=== PATIENT | male | born 1955 | race Caucasian/White ===

== ENCOUNTER 2019-08-22 01:38 | Day surgery (SDC) | payer OTHER, SELFPAY ==
[2019-08-19 09:10] VITALS: BMI 25.1
[2019-08-22 06:46] VITALS: BP 124/73; PULSE 105; RESP 20; TEMP 36.3; O2SAT 95; BMI 24.0
[2019-08-22] MEDS: LACTATED RINGERS 1,000 ML 150 ML IV CONT (06:50)
--- NOTE | 2019-08-22 07:23 | WPDANESEPPF ---
Anes - Initial Pre Proc Eval Procedure: Operation Date: 08/22/19 07:30 Proposed Procedures p Colonoscopy - Hemal Monge DO Date/Time: 08/22/19 07:23 Surgeon: Hemal Monge DO Pre Op Diagnosis: Colitis Patient Data Age: 64 Gender: M Height: 5 ft 7 in Weight: 69.5 kg Last Vital Signs Temp 97.4 F L 08/22/19 06:46 Pulse 105 H 08/22/19 06:46 Resp 20 08/22/19 06:46 BP 124/73 08/22/19 06:46 Pulse Ox 95 08/22/19 06:46 Allergies Allergy/AdvReac Type Severity Reaction Status Date / Time No Known Allergies Allergy Verified 08/22/19 06:34 Home Medications Medication Instructions Recorded Confirmed Type amlodipine 10 mg PO DAILY 08/19/19 08/22/19 History atorvastatin 10 mg PO DAILY 08/19/19 08/22/19 History mesalamine 1.2 g PO DAILY 08/19/19 08/19/19 History Patient hx anesthesia problems: none Family hx anesthesia problems: none [facility] Past Medical History Medical History (Updated 08/22/19 @ 07:23 by Rob Alberto MD) Hyperlipidemia Hypertension Social History Social History Smoking status: Heavy tobacco smoker Second hand tobacco smoke exposure: No Alcohol intake: current Anes - Eval Final PreProcedure Day of Procedure 08/22/19 07:23 Patient weight: normal Heart: regular rate and rhythm Lungs: clear to auscultation Airway: Mallampati scale class II Neurological: alert and oriented Last oral intake: >/= 8 hours ASA classification: II Emergent: no Anesthetic plan: proceed Anesthesia type and monitoring: general GIVS and standard monitoring Informed Consent: The patient's anesthetic plan and its attendant risks and benefits were discussed with the patient/family/POA. Questions were solicited and answers provided to the satisfaction of the patient/family/POA.
--- NOTE | 2019-08-22 07:54 | PM.IMHP ---
H&P: HPI History of Present Illness Chief complaint: Colitis Narrative: Reason for visit colonoscopy. Impression: This very pleasant gentleman has a history of adenomatous colon polyps. He is here for screening and surveillance colonoscopy. 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 He is here for follow-up colonoscopy to assess for any type of inflammatory disease. For past medical history. Recommendation: Colonoscopy. History very pleasant gentleman is a history is screening and surveillance colonoscopy. He has a history adenomatous colon polyps. Previous biopsies did show some nonspecific inflammation with crypt abscesses. His GI review systems negative at this time. He is here for follow-up colonoscopy. Patient does have a history of shortness of breath and dyspnea exertion and wheezing. General: very pleasant patient in no acute distress. HEENT: Head was normocephalic sclerae is clear mouth without masses neck was supple. Heart: Rate rhythm regular without S3 or S4. Lungs: CTA. Abdomen: Soft with no guarding or rigidity. Bowel sounds were active. Neurologic: Cranial nerves 2 through 12 intact. No focal defects. No clonus. Musculoskeletal system: Revealed no joint tenderness or swelling no muscle atrophy. Extremities: Reveal no significant edema. Skin: Warm and dry with normal turgor. Mental status: intact. Patient is alert and oriented. Impression: Screening and surveillance colonoscopy. Patient's is adenomatous colon polyps and nonspecific inflammation. Recommendation: Colonoscopy. [facility] Past Medical History Medical History (Updated 08/22/19 @ 07:54 by Hemal Monge DO) Adenomatous colon polyp COPD (chronic obstructive pulmonary disease) Hyperlipidemia Hypertension Tobacco abuse Surgical History Surgical History (Updated 08/22/19 @ 07:50 by Hemal Monge DO) History of colonoscopy Family History Family History (Updated 08/22/19 @ 07:51 by Hemal Monge DO) Father Malignant neoplasm of prostate Social History Social History Smoking status: Heavy tobacco smoker Second hand tobacco smoke exposure: No Alcohol intake: current Meds Home Medications and Allergies Home Medications Medication Instructions Recorded Confirmed Type amlodipine 10 mg PO DAILY 08/19/19 08/22/19 History atorvastatin 10 mg PO DAILY 08/19/19 08/22/19 History mesalamine 1.2 g PO DAILY 08/19/19 08/19/19 History Allergies Allergy/AdvReac Type Severity Reaction Status Date / Time No Known Allergies Allergy Verified 08/22/19 06:34 Vital Signs Vital Signs - 24 hr 08/22/19 06:46 Temperature 36.3 C L Pulse Rate 105 H Respiratory Rate 20 Blood Pressure 124/73 Pulse Oximetry 95
[2019-08-22 08:42] VITALS: BP 115/78; PULSE 72; RESP 20; O2SAT 97
[2019-08-22 08:52] VITALS: BP 139/96; PULSE 68; RESP 18; O2SAT 100
[2019-08-22 09:02] VITALS: BP 146/87; PULSE 75; RESP 20; O2SAT 98
== END 2019-08-22 09:48 | disposition home or self-care (01) ==
PROVIDERS: PCP Family Medicine; Visit Provider Internal Medicine Gastroenterology
PROC: 0DJD8ZZ Inspection of Lower Intestinal Tract, Via Natural or Artificial Opening Endoscopic (ICD-10-PCS; CPT 45378; principal; 2019-08-22 07:30)
DX: Z12.11 Encounter for screening for malignant neoplasm of colon (principal); K52.9 Noninfective gastroenteritis and colitis, unspecified; D12.3 Benign neoplasm of transverse colon; D12.2 Benign neoplasm of ascending colon; D12.4 Benign neoplasm of descending colon; K64.8 Other hemorrhoids; K57.30 Diverticulosis of large intestine without perforation or abscess without bleeding; I10 Essential (primary) hypertension; E78.5 Hyperlipidemia, unspecified; J44.9 Chronic obstructive pulmonary disease, unspecified; F17.210 Nicotine dependence, cigarettes, uncomplicated
CPT/HCPCS: 45385; 45380; 88305; J2704; J7120

== ENCOUNTER 2022-07-19 10:20 | Outpatient (CLI) | payer MEDICARE, OTHER, SELFPAY ==
[2022-07-19 15:33] LABS: Basophils Absolute Auto 0.1 K/mm3 (0.0-0.1); Basophils Percent Auto 1.1 % (0.2-1.2); Eosinophils Absolute Auto 0.3 K/mm3 (0-0.3); Eosinophils Percent Auto 3.5 % (0-4.4); Hematocrit 43.9 % (42.0-52.0); Hemoglobin 15.1 g/dL (14.0-18.0); Immature Granulocyte Absolute 0.04 K/mm3 (0.00-0.031); Immature Granulocyte Percent A 0.5 % (0-0.5); Lymphocytes Absolute Auto 2.38 K/mm3 (0.9-3.2); Lymphocytes Percent Auto 30.1 % (18.3-44.2); Mean Corpuscular HGB Conc 34.4 g/dl (32-36); Mean Corpuscular Hemoglobin 30.4 pg (26-34); Mean Corpuscular Volume 88.5 fl (80-100); Monocytes Absolute Auto 0.8 K/mm3 (0.1-0.6); Monocytes Percent Auto 9.8 % (2.6-8.5); Neutrophils Absolute Auto 4.4 K/mm3 (1.3-6.7); Platelet Count Result 272 k/mm3 (150-375); Red Blood Count 4.96 M/mm3 (4.6-6.20); Red Cell Distribution Width 13.2 % (11.5-14.5); White Blood Count 7.9 K/mm3 (4.5-10.0)
[2022-07-19 16:24] LABS: Hemoglobin A1C 5.9 % (<5.7)
[2022-07-19 19:50] LABS: Alanine Aminotransferase 34 U/L (6-50); Albumin Level 4.6 g/dL (3.5-5.1); Alkaline Phosphatase 97 U/L (38-126); Anion Gap 7 mmol/L (8-16); Aspartate Amino Transferase 30 U/L (17-59); Bilirubin,Total 0.6 mg/dL (0.2-1.3); Blood Urea Nitrogen 12 mg/dL (9-20); Calcium 8.9 mg/dL (8.4-10.2); Carbon Dioxide 25 mmol/L (22-30); Chloride 105 mmol/L (98-107); Cholesterol 191 mg/dL (0-200); Estimated Glomerular Filt Rate > 60; Glucose 103 mg/dL (65-110); HDL Direct 54 mg/dL; Sodium 137 mmol/L (137-145); Triglycerides 146 mg/dL (<150)
[2022-07-19 20:01] LABS: LDL Cholesterol Direct 94 mg/dL
[2022-07-19 20:02] LABS: Vitamin D 25 Hydroxy 71.9 ng/mL
[2022-07-19 20:21] LABS: Prostate Specific Antigen 1.5 ng/mL (< OR = 4.0)
== END 2022-07-19 10:21 | disposition home or self-care (01) ==
LOC: ANHGOSHLAB 10:23
PROVIDERS: PCP Family Medicine; Visit Provider Family Medicine
DX: I10 Essential (primary) hypertension (principal); E53.8 Deficiency of other specified B group vitamins; E55.9 Vitamin D deficiency, unspecified; E78.5 Hyperlipidemia, unspecified; Z12.5 Encounter for screening for malignant neoplasm of prostate; R73.03 Prediabetes
CPT/HCPCS: 36415; 80053; 80061; 82306; 82607; 83036; 84153; 84443; 85025; G0103

== ENCOUNTER 2022-09-28 00:52 | Day surgery (SDC) | payer MEDICARE, OTHER, SELFPAY ==
[2022-09-19 13:44] VITALS: BMI 25.9
--- NOTE | 2022-09-27 12:12 | WPDANESEPPF ---
Anes - Initial Pre Proc Eval Procedure: Operation Date: 09/28/22 09:30 Proposed Procedures p Colonoscopy - Bhavesh Choudhary MD Date/Time: 09/27/22 12:12 Surgeon: Bhavesh Choudhary MD Pre Op Diagnosis: hx colon polyps Patient Data Age: 67 Gender: M Height: 1.7 m Weight: 75 kg Allergies Allergy/AdvReac Type Severity Reaction Status Date / Time No Known Allergies Allergy Verified 09/28/22 08:34 Home Medications Medication Instructions Recorded Confirmed Type Bacillus coagulans 10 billion cell 1 cell PO DAILY 07/16/21 09/28/22 History capsule,delayed release (Probiotic (B. coagulans)) calcium polycarbophil 625 mg 2,500 mg PO BID 07/16/21 09/28/22 History tablet (FiberCon) cholecalciferol (vitamin D3) 50 50 mcg PO DAILY 07/16/21 09/28/22 History mcg (2,000 unit) capsule zinc gluconate 50 mg tablet 50 mg PO DAILY 07/16/21 09/28/22 History cyanocobalamin (vitamin B-12) 1,000 mcg sublingual DAILY #90 tabs 07/20/22 09/28/22 Rx 1,000 mcg sublingual tablet amlodipine 10 mg tablet 10 mg PO DAILY #90 tabs 08/10/22 09/28/22 Rx atorvastatin 10 mg tablet 10 mg PO QHS #90 tabs 08/12/22 09/28/22 Rx Patient hx anesthesia problems: none Family hx anesthesia problems: none Results Review: All pre-operative results and documents have been reviewed as part of the pre-operative evaluation. [facility] Past Medical History Medical History Adenomatous colon polyp COPD (chronic obstructive pulmonary disease) Dyslipidemia Essential hypertension Tobacco abuse Vitamin D deficiency Surgical History Surgical History History of colonoscopy Family History Family History Father Malignant neoplasm of prostate Social History Social History Smoking packs per day: 1 Smoking cigarettes per day: 20.0 Years smoked: 45 Smoking pack-years: 45.00 Smoking status: Current every day smoker Tobacco type: cigarettes Second hand tobacco smoke exposure: Yes Alcohol intake: current Drinks per week: 12 Alcohol use details: socially Substance use: never Substance use type: does not use Lack of Transportation: No Lack of Food: Never True Current Housing: I Have Housing Concerned About Future Housing: No Difficulty Paying Gas/Electric Bills: No Difficulty Paying for Meds: No Currently Unemployed: No Education: High School Diploma/GED Difficulty w/ Childcare or Family Care: No Living arrangements: with family Gender identity (if verbalized by the patient): Male Sexual Orientation (if Verbalized by the Patient): Straight or Heterosexual Spiritual care concerns: No Anes - Eval Final PreProcedure Day of Procedure 09/27/22 12:12 Patient weight: overweight Heart: regular rate and rhythm Lungs: clear to auscultation Airway: Mallampati scale class II Neurological: alert and oriented Last oral intake: >/= 8 hours ASA classification: III Emergent: no Anesthetic plan: proceed Anesthesia type and monitoring: general GIVS and standard monitoring Results Review: All pre-operative results and documents have been reviewed as part of the pre-operative evaluation. Informed Consent: The patient's anesthetic plan and its attendant risks and benefits were discussed with the patient/family/POA. Questions were solicited and answers provided to the satisfaction of the patient/family/POA.
[2022-09-28 08:36] VITALS: BP 114/71; PULSE 67; RESP 20; TEMP 36.4; O2SAT 97; BMI 25.2
[2022-09-28] MEDS: LACTATED RINGERS 1,000 ML 150 ML IV CONT (08:44)
--- NOTE | 2022-09-28 08:55 | PM.HPGS ---
History of Present Illness History of Present Illness Consent: Risks, benefits, and alternatives have been discussed and questions answered. Patient agrees to proceed with procedure. Chief complaint: hx colon polyps Narrative: Luiz Momin is a 67 year old male with colon polyps in 2019 Review of Systems Constitutional: Constitutional: Denies headache(s) and Denies weakness Eyes: Eyes: Denies blurry vision ENT: Reports Normal hearing present, Denies headache(s) and Denies neck pain Cardiovascular: Cardiovascular: Denies chest pain and Denies dyspnea Respiratory: Respiratory: Denies dyspnea Gastrointestinal: Gastrointestinal: Reports no additional gastrointestinal complaints Genitourinary: Genitourinary: Denies dysuria Musculoskeletal: Musculoskeletal: Denies neck pain Integumentary/Breasts: Skin/Breast: Denies dry skin Neurologic: Reports Normal hearing present, Denies headache(s) and Denies weakness Psychiatric: Psychiatric: Denies anxiety Endocrine: Endocrine: Denies change in body appearance Hematologic/Lymphatic: Hematologic/Lymphatic: Denies easy bleeding Allergic/Immunologic: Allergic/Immunologic: Denies urticaria PMFSH Past Medical History Medical History (Updated 09/28/22 @ 08:58 by Bhavesh Choudhary MD) Adenomatous colon polyp COPD (chronic obstructive pulmonary disease) Dyslipidemia Essential hypertension Tobacco abuse Vitamin D deficiency Surgical History Surgical History History of colonoscopy Family History Family History Father Malignant neoplasm of prostate Social History Social History Smoking packs per day: 1 Smoking cigarettes per day: 20.0 Years smoked: 45 Smoking pack-years: 45.00 Smoking status: Current every day smoker Tobacco type: cigarettes Second hand tobacco smoke exposure: Yes Alcohol intake: current Drinks per week: 12 Alcohol use details: socially Substance use: never Substance use type: does not use Lack of Transportation: No Lack of Food: Never True Current Housing: I Have Housing Concerned About Future Housing: No Difficulty Paying Gas/Electric Bills: No Difficulty Paying for Meds: No Currently Unemployed: No Education: High School Diploma/GED Difficulty w/ Childcare or Family Care: No Living arrangements: with family Gender identity (if verbalized by the patient): Male Sexual Orientation (if Verbalized by the Patient): Straight or Heterosexual Spiritual care concerns: No Meds Home Medications and Allergies Home Medications Medication Instructions Recorded Confirmed Type Bacillus coagulans 10 billion cell 1 cell PO DAILY 07/16/21 09/28/22 History capsule,delayed release (Probiotic (B. coagulans)) calcium polycarbophil 625 mg 2,500 mg PO BID 07/16/21 09/28/22 History tablet (FiberCon) cholecalciferol (vitamin D3) 50 50 mcg PO DAILY 07/16/21 09/28/22 History mcg (2,000 unit) capsule zinc gluconate 50 mg tablet 50 mg PO DAILY 07/16/21 09/28/22 History cyanocobalamin (vitamin B-12) 1,000 mcg sublingual DAILY #90 tabs 07/20/22 09/28/22 Rx 1,000 mcg sublingual tablet amlodipine 10 mg tablet 10 mg PO DAILY #90 tabs 08/10/22 09/28/22 Rx atorvastatin 10 mg tablet 10 mg PO QHS #90 tabs 08/12/22 09/28/22 Rx Allergies Allergy/AdvReac Type Severity Reaction Status Date / Time No Known Allergies Allergy Verified 09/28/22 08:34 Vital Signs Vital Signs - 24 hr 09/28/22 08:36 Temperature 97.5 F L Pulse Rate 67 Respiratory Rate 20 Blood Pressure 114/71 Pulse Oximetry 97 Oxygen Delivery Room Air Exam Const: General: comfortable and no acute distress HENMT: Face/Nose/Sinus: Normal nares present Eyes: General: appearance normal, both eyes and all related structures Neck: Neck:
[2022-09-28 09:13] VITALS: BP 113/81; PULSE 88; RESP 20; O2SAT 95
[2022-09-28 09:23] VITALS: BP 106/79; PULSE 62; RESP 18; O2SAT 96
[2022-09-28 09:33] VITALS: BP 116/74; PULSE 64; RESP 18; O2SAT 96
== END 2022-09-28 09:39 | disposition home or self-care (01) ==
PROVIDERS: PCP Family Medicine; Visit Provider Internal Medicine Gastroenterology
PROC: 0DJD8ZZ Inspection of Lower Intestinal Tract, Via Natural or Artificial Opening Endoscopic (ICD-10-PCS; CPT 45378; principal; 2022-09-28 09:30)
DX: Z12.11 Encounter for screening for malignant neoplasm of colon (principal); D12.3 Benign neoplasm of transverse colon; K57.30 Diverticulosis of large intestine without perforation or abscess without bleeding; K64.8 Other hemorrhoids; J44.9 Chronic obstructive pulmonary disease, unspecified; I10 Essential (primary) hypertension; E55.9 Vitamin D deficiency, unspecified; E78.5 Hyperlipidemia, unspecified; F17.210 Nicotine dependence, cigarettes, uncomplicated
CPT/HCPCS: 45385; 88305; J2704; J7120

== ENCOUNTER 2023-04-19 13:19 | Outpatient (CLI) | payer MEDICARE, OTHER, SELFPAY ==
[2023-04-19 20:19] LABS: Potassium 4.7 mmol/L (3.4-5.0)
[2023-04-19 20:34] LABS: Alanine Aminotransferase 29 U/L (6-50); Albumin Level 4.7 g/dL (3.5-5.1); Alkaline Phosphatase 82 U/L (38-126); Anion Gap 9 mmol/L (8-16); Aspartate Amino Transferase 33 U/L (17-59); Bilirubin,Total 0.6 mg/dL (0.2-1.3); Blood Urea Nitrogen 13 mg/dL (9-20); Calcium 9.5 mg/dL (8.4-10.2); Carbon Dioxide 28 mmol/L (22-30); Chloride 99 mmol/L (98-107); Estimated Glomerular Filt Rate > 60; Glucose 119 mg/dL (65-110); Sodium 136 mmol/L (137-145)
[2023-04-19 21:59] LABS: Hemoglobin A1C 5.5 % (<5.7)
== END 2023-04-19 13:20 | disposition home or self-care (01) ==
LOC: ANHGOSHLAB 13:21
PROVIDERS: PCP Family Medicine; Visit Provider Family Medicine
DX: R73.03 Prediabetes (principal); I10 Essential (primary) hypertension
CPT/HCPCS: 36415; 80053; 83036

== ENCOUNTER → 2023-06-09 11:59 | Outpatient (CLI) | payer MEDICARE, BC, SELFPAY ==
--- NOTE | ~2023-06-09 | XR_ITS ---
Cervical Spine: AP, lateral, open-mouth views Clinical History: Pain Findings: There is reversal of the normal cervical lordosis. There is 5-6 mm anterolisthesis of C2 ov er C3. There is severe degenerative disc narrowing from C2 through C7. There is mild facet arthropath y. Pre-vertebral soft tissues are unremarkable. Impression: 5-6 mm anterolisthesis of C2 over C3. Moderate degenerative spondylosis of the cervical spine. Reviewed, dictated and finalized at location . ATAL DOCTOR Impression: 5-6 mm anterolisthesis of C2 over C3. Moderate degenerative spondylosis of the cervical spine.
== END ==
PROVIDERS: PCP Chiropractor; Visit Provider Nurse Practitioner Family
DX: M47.892 Other spondylosis, cervical region (principal)
CPT/HCPCS: 72040

== ENCOUNTER → 2023-06-15 13:22 | Outpatient (CLI) | payer MEDICARE, BC, SELFPAY ==
--- NOTE | ~2023-06-15 | MR_ITS ---
EXAMINATION: MR cervical spine wo con DATE: 06/15/2023 14:05 INDICATION: Cervicalgia TECHNIQUE: Magnetic resonance imaging (MRI) of the cervical spine was performed without intravenous c ontrast. Sequences included sagittal T2-weighted FSE, sagittal T2-weighted FS FSE, sagittal T2-weight ed FS FSE PROPELLER, sagittal fluid sensitive FSE STIR, sagittal T1-weighted FSE PROPELLER, sagittal T1-weighted FSE, axial MERGE and axial T2-weighted FSE. COMPARISON: None FINDINGS: There is mild reversal of the normal cervical lordosis. Vertebral body heights are normal. There is s evere disc height loss at C3-C4 with increased T2 signal and with diffuse loss of T1 marrow fat signa l in the adjacent C3 and C4 vertebral bodies consistent with discitis and osteomyelitis. There is a l letha lenticular region of prominent increased T2 signal anterior to the cervical spine extending proxi vivian 9 cm craniocaudally from the level of the tip of the dens to the level of the inferior endplate of C5 and up to 1.3 cm AP Which could represent either reactive edema or potentially a retropharynge al abscess. No abnormal fluid collections in the central canal to suggest an associated epidural absc ess. Additional severe disc height loss at C4-C5, C5-C6 and T1-T2 through T3-T4. Mild disc height loss at C2-C3 and C7-T1. Annular fissure at C2-C3. Mild fibrovascular degenerative endplate changes at T3-T4 and posteriorly at C5-C6. Marrow signal is otherwise unremarkable with no other pathologic marrow rep lacing process. Cord signal intensity is normal. The following disc levels are specifically discussed although assessment is limited by motion artifact or blurring on multiple sequences: C2-C3: Annular fissure with small central disc protrusion. There is mild bilateral uncovertebral join t osteoarthritis. There is left and severe right facet joint osteoarthritis. There is mild right neur al foraminal stenosis. There is mild central canal stenosis. C3-C4: Disc is mildly bulging. There is severe bilateral uncovertebral joint osteoarthritis. There is mild right and moderate left facet joint osteoarthritis. There is mild left and moderate right neura l foraminal stenosis. There is mild to moderate central canal stenosis. C4-C5: Disc is bulging. There is severe right and moderate left uncovertebral joint osteoarthritis. T here is moderate left and severe right facet joint osteoarthritis. There is left and moderate to elfego re right neural foraminal stenosis. There is mild to moderate central canal stenosis. C5-C6: Posterior disc osteophyte complex. There is moderate left and severe right uncovertebral joint osteoarthritis. There is moderate bilateral facet joint osteoarthritis. There is moderate to severe bilateral neural foraminal stenosis. There is moderate central canal stenosis. C6-C7: Disc is bulging. There is severe bilateral uncovertebral joint osteoarthritis. There is modera te left and mild right facet joint osteoarthritis. There is severe left and moderate to severe right neural foraminal stenosis. There is mild central canal stenosis. C7-T1: The disc does not extend beyond the endplate margin. There is mild bilateral uncovertebral volodymyr nt osteoarthritis. There is moderate right and severe left facet joint osteoarthritis. There is moder ate bilateral neural foraminal stenosis. There is no central canal stenosis. IMPRESSION: 1. C3-C4 discitis with osteomyelitis involving the C3 and C4 vertebral bodies. There is a 9 x 1.3 x 3 cm lenticular region of increased T2 signal anterior to the cervical spine from the tip of the dens to the inferior endplate of C5 which could represent either reactive edema or potentially a retrophar yngeal abscess with differentiation limited by the absence of intravenous contrast. No evident extens ion into the central canal. Emergent neurosurgical consultation is recommended. Dr. Sorensen discusse d these findings with
== END ==
PROVIDERS: PCP Chiropractor; Visit Provider Nurse Practitioner Family
DX: M47.892 Other spondylosis, cervical region (principal); M47.894 Other spondylosis, thoracic region
CPT/HCPCS: 72141

== ENCOUNTER 2023-12-01 09:34 | Outpatient (CLI) | payer MEDICARE, BC, SELFPAY ==
[2023-12-01 12:52] LABS: Alanine Aminotransferase 19 U/L (6-50); Albumin Level 4.5 g/dL (3.5-5.1); Alkaline Phosphatase 104 U/L (38-126); Anion Gap 7 mmol/L (4-12); Aspartate Amino Transferase 56 U/L (17-59); Bilirubin,Total 0.7 mg/dL (0.2-1.3); Blood Urea Nitrogen 16 mg/dL (9-20); Calcium 9.2 mg/dL (8.4-10.2); Carbon Dioxide 27 mmol/L (22-30); Chloride 106 mmol/L (98-107); Cholesterol 152 mg/dL (0-200); Estimated Glomerular Filt Rate > 60; Glucose 104 mg/dL (65-110); HDL Direct 35 mg/dL; Potassium 4.1 mmol/L (3.4-5.0); Sodium 140 mmol/L (137-145); Triglycerides 136 mg/dL (<150)
[2023-12-01 13:09] LABS: LDL Cholesterol Direct 89 mg/dL
[2023-12-01 13:21] LABS: Prostate Specific Antigen 1.8 ng/mL (< OR = 4.0)
[2023-12-01 13:32] LABS: Hemoglobin A1C 6.1 % (<5.7)
== END 2023-12-01 09:35 | disposition home or self-care (01) ==
LOC: ANHGOSHLAB 09:37
PROVIDERS: PCP Family Medicine; Visit Provider Family Medicine
DX: E78.5 Hyperlipidemia, unspecified (principal); Z12.5 Encounter for screening for malignant neoplasm of prostate; E53.8 Deficiency of other specified B group vitamins; R73.03 Prediabetes
CPT/HCPCS: 36415; 80053; 80061; 82607; 83036; 84153; G0103

== ENCOUNTER 2024-05-16 12:55 | Outpatient (CLI) | payer MEDICARE, BC, SELFPAY ==
[2024-05-16 19:35] LABS: Alanine Aminotransferase 25 U/L (6-50); Albumin Level 4.6 g/dL (3.5-5.1); Alkaline Phosphatase 78 U/L (38-126); Anion Gap 6 mmol/L (4-12); Aspartate Amino Transferase 54 U/L (17-59); Bilirubin,Total 0.5 mg/dL (0.2-1.3); Blood Urea Nitrogen 23 mg/dL (9-20); Calcium 9.5 mg/dL (8.4-10.2); Carbon Dioxide 27 mmol/L (22-30); Chloride 103 mmol/L (98-107); Estimated Glomerular Filt Rate > 60; Glucose 85 mg/dL (65-110); Potassium 4.5 mmol/L (3.4-5.0); Sodium 136 mmol/L (137-145)
[2024-05-16 21:37] LABS: Hemoglobin A1C 6.2 % (<5.7)
== END 2024-05-16 12:56 | disposition home or self-care (01) ==
PROVIDERS: PCP Family Medicine; Visit Provider Family Medicine
DX: R73.03 Prediabetes (principal); I10 Essential (primary) hypertension; E78.5 Hyperlipidemia, unspecified
CPT/HCPCS: 36415; 80053; 83036

== ENCOUNTER 2024-11-12 11:43 | Outpatient (CLI) | payer MEDICARE, BC, SELFPAY ==
--- OUTSIDE RECORDS SUMMARY | 2024-11-12 12:57 | XMS_ITS | Clinical Summary ---
Author Organization [facility] Address [address], [address] [address] Phone Care Team Providers Care Orthopedic Brace Maker Name Role Phone Chet Rodríguez MD Primary Care Provider Medications mesalamine (LIALDA) 1.2 GM Tablet Delayed Response Take 4 tablets by mouth once daily 120 Tab 3 09/03/2019 Active Social History Tobacco Use Types Packs/Day Years Used Date Smoking Tobacco: Never Assessed Sex and Gender Information Value Date Recorded Sex Assigned at Not on file Legal Sex Male 11:12 PM CDT Gender Identity Not on file Sexual Orientation Not on file Plan of Treatment Health Maintenance Due Date Last Done Comments Hepatitis C Virus (HCV) Screening 1955 Cologuard 2007 Immunochemical Fecal Occult Blood 2007 Pneumococcal Immunization (5 0+ years) (1 of 1 - PCV) 2007 Zoster Immunization (1 of 2) 2007 PSA Discussion 01/23/2012 Colonoscopy 08/21/2021 08/22/2019, 07/04/2018 Colorectal Cancer Screening 08/21/2021 Influenza Immunization (#1) 2024 03/03/2019 SARS-COV-2 Immunization ( - season) 2024 Respiratory Syncytial Virus (RSV) Immunization (Adult) (1 - 1-dose 75+ series) 01/23/2032 DTaP/Tdap/Td Immunization Discontinued 2013, 05/12/1998 TdaP Immunization Completed 08/12/2013 Hepatitis B Immunization Aged Out No longer eligible based on patient's age to complete this topic Meningococcal Immunization (ACWY) Aged Out No longer eligible based on patient's age to complete this topic Rotavirus Immunization Aged Out No lo nger eligible based on patient's age to complete this topic Procedures Procedure Name Priority Date/Time Associated Diagnosis Comments COLONOSCOPY Routine 08/22/2019 from Last 3 Months or Most Recently Relevant to Health Maintenance Results * COLONOSCOPY (08/22/2019) Hemal Monge DO PROCEDURE/MINOR SURGICAL ORDERA BLES Final Result from Last 3 Months or Most Recently Relevant to Health Maintenance Care Teams Orthopedic Brace Maker Relationship Specialty Start Date End Date Chet Rodríguez MD PCP - General Family Medicine 07/10/18
--- OUTSIDE RECORDS SUMMARY | 2024-11-12 12:57 | XMS_ITS | Referral Summary ---
Author Organization [facility] Address [address] [place] [address] Care Team Providers Care Hoop Cutter Name Role Phone Chet Rodríguez MD Primary Care Provider Encounters Date Type Department Care Team Description 11/01/2024 Orders Only [facility] Pulmonary [address] [facility] 8th [place] [address] [place] [address] Olayinka Jack RMA Lesion of left lung (Primary Dx) 10/29/2024 8:16 AM CDT - 10/29/2024 11:59 PM CDT Hospital Encounter [facility] [address] [place] [address] Emmanuel Richmond MD Lesion of left lung Discharge Disposition: Discharge to home or self care 10/29/2024 9:30 AM CDT Office Visit [facility] Pulmonary [address] [facility] 8th [place] [address] [place] [address] Emmanuel Richmond MD Lesion of left lung (Primary Dx) from Last 3 Months Allergies No known active allergies Medications atorvastatin (LIPITOR) 10 mg tablet Take 1 tablet (10 mg total) by mouth nightly 3 Active amLODIPine (NORVASC) 10 mg tablet Take 1 tablet (10 mg total) by mouth daily 3 Active aspirin 81 mg enteric coated tablet Take 1 tablet (81 mg total) by mouth daily 30 tablet 11 4 Active diclofenac sodium (VOLTAREN) 1 % gelIndications: Nech pain Apply 2 g topically 3 (three) times a day 2 g 4 Active Additional Information Patient not taking.Reported on 10/29/2024 traZODone (DESYREL) 50 mg tabletIndicatio ns:Insomnia Take 0.5 tablets (25 mg total) by mouth nightly 30 tablet 1 4 Active Additional Information Patient taking differently:25 mg oralAs needed, Indications: Insomnia, Reported on 10/29/2024 hydrOXYzine (ATARAX) 25 mg tabletIndicatio ns:anxiety Take 1 tablet (25 mg total) by mouth 4 (four) times a day as needed for anxiety 30 tablet 4 Active Additional Information Patient not taking.Reported on 10/29/2024 metFORMIN (GLUCOPHAGE) 500 mg tablet 1TAB BY MOUTH ONCE DAILY (DINNER) FOR 7DAYS THEN INCREASE TO 1TAB TWICE DAILY (BREAKFAST AND DINNER) 4 Active ZINC ORAL Take by mouth Active cyanocobalamin, vitamin B-12, (VITAMIN B-12 ORAL) Take by mouth Active cholecalciferol , vitamin D3, (VITAMIN D3 ORAL) Take by mouth Active psyllium seed, with sugar, (FIBER ORAL) Take by mouth Act virginia acidophilus-pec tin, citrus 100 million cell-10 mg capsule Take by mouth daily Active Active Problems Problem Noted Date Diagnosed Date Lesion of left lung 06/20/2023 Assessment & Plan (06/20/2023 6:07 PM BIRD SITTER): Mr. Momin is a very pleasant 68 yo M w/ PMH of HTN and HLD who was admitted for C3/C4 osteomyelitis/discitis and concern for retropharyngeal abscess and incidentally found to have a RUL lesion. We favor the patient's RUL lesion to be most consistent with a mucocele/bronchocele, and less likely malignant. Nevertheless, the patient has multiple risk factors including his age, upper lobe location, prior tobacco use, and workplace exposures which warrant follow-up of this lesion. Should this lesion be malignant, it would most likely represent a low-grade adenocarcinoma and would be slow growing. - We will set the patient up for 6 month follow-up in the IP clinic - Same day CT at that time - We will call the patient to help arrange this Retropharyngeal abscess 06/17/2023 Osteomyelitis of cervical spine 06/16/2023 Assessment & Plan (12/26/2023 11:45 AM CDT): - Remains on Augmentin 875 mg PO BID for prevertebral fluid collection and tolerating therapy well - Patient had repeat MRI C-spine today noting interval near complete resolution of prevertebral fluid and edema. . - Patient denies fever, chills, night sweats, N/V, diarrhea. Also denies neck pain, tenderness, stiffness. -Reviewed recent labs - Patient continues to do very well clinically from an ID standpoint and we will stop the antibiotics today - Discussed with patient the rational for treatment, culture results, risk of recurrent infection, signs/symptoms of recurrent infection, and to contact ID clinic with any questions or concerns. Assessment & Plan (10/19/2023 2:37 PM CDT): - Remains on Augmentin 875 mg PO BID for prevertebral fluid collection and tolerating therapy well - Patient had repeat MRI C-spine today noting The prevertebral soft tissue swelling and fluid collection are markedly decreased. - Patient denies fever, chills, night sweats, N/V, diarrhea. Also denies neck pain, tenderness, stiffness. - Patient continues to do very well clinically from an ID standpoint despite the presence of prevertebral fluid collection. He will remain on Augmentin until the fluid collection has completely resolved. Sent refill to his pharmacy - We will plan to get repeat MRI C-spine and RTC on 12/20 (same day he sees NSGY) RTC on 12/20 Assessment & Plan (09/07/2023 1:21 PM CDT): - remains on Augmentin 875 mg PO BID for cervical OM and prevertebral fluid collection. Tolerating therapy well. He denies fever, chills, night sweats, N/V, diarrhea, neck stiffness, and neck pain. He continues to wear the cervical collar per NSGY's recs - Repeat MRI 08/31 was significantly improved, noting Prevertebral soft tissue collection/phlegmonous changes are significantly improved, but prevertebral fluid remains. Therefore, extending patient's Augmentin until it has fully resolved and ordering a repeat MRI for 6 weeks from now to assess fluid collection. Sent refill to patient's pharmacy - From an ID standpoint, patient is doing very well clinically with no s/s of an active infection. He will get repeat MRI a few days before our follow up visit. If fluid collection has resolved, we can stop antibiotics - Discussed the rationale for treatment, risk of recurrent infections, signs/symptoms of recurrent infection, and to contact ID clinic with any questions or concerns between now and his next visit RTC in 6 week Assessment & Plan (07/27/2023 1:18 PM BIRD SITTER): - IR performed cervical bone biopsy 06/21. Culture and 16S PCR sent (16S PCR indicate no bacterial DNA detected). Bacterial cx negative, fungal and AFB NGTD - On week 11/08 of Unasyn (Ampicillin-sulbactam) 3g IV Q6H for cervical osteomyelitis, prevertebral fluid collection and tolerated therapy well - 07/25 repeat MRI noted Redemonstration of findings of C3-C4 discitis osteomyelitis and septic facet arthritis with interval decrease in marrow edema and enhancement. Prevertebral phlegmon/fluid and epidural enhancement, similar to the prior. - Pulling PICC line in clinic today and stopping IV antibiotics. Transitioning patient to Augmentin 875 mg PO BID and sending script to his pharmacy - Patient will remain on Augmentin 875 mg PO BID until phlegmon is completely resolved - He denies fever, chills, night sweats, N/V, diarrhea, neck stiffness, and neck pain. He continues to wear his neck collar until f/u with NSGY 08/10 - Will obtain repeat MRI in 6 weeks - Patient will f/u with me 09/06 - Discussed the rationale for treatment, risk of recurrent infections, signs/symptoms of recurrent infection, and to contact ID clinic with any questions or concerns between now and his next visit Assessment & Plan (07/10/2023 3:20 PM BIRD SITTER): - 06/21 cervical bone biopsy. Culture and 16S PCR sent (16S PCR indicate no bacterial DNA detected). Bacterial cx negative, fungal and AFB NGTD - On week 3/6 of Unasyn (Ampicillin-sulbactam) 3g IV Q6H for cervical osteomyelitis, prevertebral fluid collection and tolerating therapy well. Denies fever, chills, night sweats, N/V, and diarrhea. He is without neck tenderness or spinal pain - Discussed 07/06 repeat MRI being reassuring that prevertebral phlegmon is decreasing in size - Will continue current abx regimen with tentative EOT of 07/28/23 pending repeat imaging. If phlegmon is resolved at that time, we can d/c abx. If not, we will extend treatment duration until resolved - RTC 07/27/23 - Discussed the rationale for treatment, risk of recurrent infections, signs/symptoms of recurrent infection, and to contact ID clinic with any questions or concerns between now and his next visit Immunizations Immunization Administration Dates Next Due Influenza, Quad, Adjuvantated, Intramuscular Influenza, Quadrivalent, Gregoria l Culture-based MDCK, Preservative Free, Antibiotic Free, Intramuscular 03/08/2021,03/03/2019 Influenza, Quadrivalent, Hig h Dose, Preservative Free, Intrr 03/07/2022 Influenza, Quadrivalent, Spl it, Preservative Free, Intramuscular 02/26/2020 Pneumococcal Conjugate Pcv20 07/13/2022 TD Preservative Free 05/12/1998 Tdap 08/12/2013 Social History Tobacco Use Types Packs/Day Years Used Date Smoking Tobacco: Every Day Cigarettes 1 48.4 Started: 1974 Smokeless Tobacco: Never Tobacco Cessation:Ready to Q uit: No; Counseling Given: No OASIS D0700: Social Isolation Answer Da te Recorded Frequency of experiencing loneliness or isolatio n Never 08/01/2023 OASIS A1250: Transportation Answer Date Recorded Lack of Transportation (Medical) No 08/01/2023 Lack of Transportation (Non-Medical) No 08/01/2023 Patient Unable or Declines to Respond No 08/01/2023 OASIS B1300: Health Literacy Answer Kevon e Recorded Frequency of needing help to read materials from doctor or pharmacy Never 08/01/2023 AUDIT-C Answer Date Recorded Q1: How often do you have a drink containing alc ohol? 2-3 times a week 09/07/2023 Q2: How many drinks containi ng alcohol do you have on a typical day when you are drinking? 3 or 4 09/07/2023 Q3: How often do you have si x or more drinks on one occasion? Never 09/07/2023 Personal Safety Answer Date Recorded Have you ever been in or are you currently in a harmful physical or emotional relationship or is someone making you feel afraid or unsafe? Denies 06/21/2023 Sex and Gender Information Value Date Recorded Sex Assigned at Not on file Legal Sex Male 2:34 PM BIRD SITTER Gender Identity Male 12/14/2023 10:37 PM CDT Sexual Orientation Straight 12/14/2023 10 :37 PM CDT Last Filed Vital Signs Vital Sign Reading Time Taken Comments Blood Pressure 141/94 10/29/2024 10:12 AM CDT Pulse 90 10/29/2024 10:12 AM CDT Temperature 36.8 C (98.2 F) 10/29/2024 10:12 AM CDT Respiratory Rate 16 10/29/2024 10:12 AM CDT Oxygen Saturation 95% 10/29/2024 10:12 AM CDT Inhaled Oxygen Concentration - - Weight 73 kg (161 lb) 10/29/2024 10:12 AM CDT Height 177.8 cm (5' 10) 10/29/2024 10:12 AM CDT Body Mass Index 23.1 10/29/2024 10:12 AM CDT Plan of Treatment Not on file Procedures Procedure Name Priority Date/Time Associated Diagnosis Comments CT CHEST WO CONTRAST Schedule Routine, Read Routine (OP Routine) 10/29/2024 9:01 AM CDT Lesion of left lung from Last 3 Months Results * CT Chest WO Contrast (10/29/2024 9:01 AM CDT) Anatomical Region Laterality Modality Body N/A Computed Tomogra phy 10/29/2024 9:21 AM CDT Impressions 10/29/2024 10:14 AM CDT Progressive increase in size of primarily cystic lesions in the right upper lobe, left upper lobe, and lingula, most consistent with adenocarcinoma spectrum lesions. Of note, the solid component of the left upper lobe lesion has markedly increased compared to the immediate prior. Dictated by: Kareem Roberto M.D. The radiology attending physician has personally reviewed this study, and had reviewed and/or edited this written report and agrees with it. Electronically signed by: Fer Florence M.D. Narrative 10/29/2024 10:14 AM CDT EXAMINATION: CT CHEST WO CONTRAST HISTORY: Bilateral cystic lesions; follow-up TECHNIQUE: Transaxial computed tomographic images of the chest were obtained without contrast. COMPARISON: CT 04/30/2024. FINDINGS: Marked increase in solid component of the left upper lobe cystic/solid nodule, with solid component now measuring 2.1 cm x 1.4 cm, previously 1.0 cm x 0.8 cm (08/25). Additional predominantly cystic lesion in the lingula (72) measures 1.8 x 1.8 cm and has progressively increased compared to 06/18/2023. Progressive increase in size of cystic right upper lobe lesion, now measuring 4.9 x 4.8 cm. (3/40). No pleural effusion or pneumothorax. Heart size within normal limits without pericardial effusion. Coronary artery calcifications. No thoracic lymphadenopathy. No aggressive osseous lesion. Right greater than left glenohumeral osteoarthritis. Imaged upper abdomen is unremarkable. Procedure Note Fer Florence MD - 10/29/2024 EXAMINATION: CT CHEST WO CONTRAST HISTORY: Bilateral cystic lesions; follow-up TECHNIQUE: Transaxial computed tomographic images of the chest were obtained without contrast. COMPARISON: CT 04/30/2024. FINDINGS: Marked increase in solid component of the left upper lobe cystic/solid nodule, with solid component now measuring 2.1 cm x 1.4 cm, previously 1.0 cm x 0.8 cm (08/25). Additional predominantly cystic lesion in the lingula (/72) measures 1.8 x 1.8 cm and has progressively increased compared to 06/18/2023. Progressive increase in size of cystic right upper lobe lesion, now measuring 4.9 x 4.8 cm. (3/40). No pleural effusion or pneumothorax. Heart size within normal limits without pericardial effusion. Coronary artery calcifications. No thoracic lymphadenopathy. No aggressive osseous lesion. Right greater than left glenohumeral osteoarthritis. Imaged upper abdomen is unremarkable. IMPRESSION: Progressive increase in size of primarily cystic lesions in the right upper lobe, left upper lobe, and lingula, most consistent with adenocarcinoma spectrum lesions. Of note, the solid component of the left upper lobe lesion has markedly increased compared to the immediate prior. Dictated by: Kareem Roberto M.D. The radiology attending physician has personally reviewed this study, and had reviewed and/or edited this written report and agrees with it. Electronically signed by: Fer Florence M.D. Emmanuel Richmond MD IMG CT PROCEDURES Final R esult from Last 3 Months Insurance MEDICARE [facility] MEDICARE [facility] Advance Directives For more information, please contact: [phone] Documents on File Type Date Recorded Patient Partner Cco Expl anation ADVANCE DIRECTIVE 06/29/2023 9:01 PM POWER OF DIRECTOR GLOBAL SALES-MEDICAL * Full Code (Latest Code Status on File) Date Activated Date Inactivated Comments 06/16/2023 11:04 PM 06/27/2023 6:25 PM Care Teams Hoop Cutter Relationship Specialty Start Date End Date Chet Rodríguez MD [address] [facility] [address] [place] [address] [place] [id number] PCP - General Family Practice 06/19/23
--- OUTSIDE RECORDS SUMMARY | 2024-11-12 12:57 | XMS_ITS | Encounter Summary ---
Author Organization [facility] Address [address] [place] [address] Care Team Providers Care Engine Cowling Installer Name Role Phone Chet Rodríguez MD Primary Care Provider Reason for Visit * Reason Onset Date Comments Follow-up Call 72 Hours 06/30/2023 Discharg e follow up call completed. Spoke with pt and spouse. Doing as well as can be expected. Home infusion continuing and both thankful for the nurses assist. Spouse making sure pt gets to his follow up appointments. No trouble with meds or following discharge instructions Encounter Details Date Type Department Care Team (Late st Contact Info) Description 06/30/2023 Telephone [facility] [address] [place] [address] Elda Vaughan RN Follow-up Call 72 Hours (Discharge follow up call completed. Spoke with pt and spouse. Doing as well as can be expected. Home infusion continuing and both thankful for the nurses assist. Spouse making sure pt gets to his follow up appointments. No trouble with meds or following discharge instructions) Social History Tobacco Use Types Packs/Day Years Used Date Smoking Tobacco: Every Day Cigarettes OASIS D0700: Social Isolation Answer Da te Recorded Frequency of experiencing loneliness or isolatio n Never 06/28/2023 OASIS A1250: Transportation Answer Date Recorded Lack of Transportation (Medical) No 06/28/2023 Lack of Transportation (Non-Medical) No 06/28/2023 Patient Unable or Declines to Respond No 06/28/2023 OASIS B1300: Health Literacy Answer Kevon e Recorded Frequency of needing help to read materials from doctor or pharmacy Always 06/28/2023 AUDIT-C Answer Date Recorded Q1: How often do you have a drink containing alc ohol? 2-3 times a week 06/21/2023 Q2: How many drinks containi ng alcohol do you have on a typical day when you are drinking? 7 to 9 06/21/2023 Q3: How often do you have si x or more drinks on one occasion? Weekly 06/21/2023 Personal Safety Answer Date Recorded Have you ever been in or are you currently in a harmful physical or emotional relationship or is someone making you feel afraid or unsafe? Denies 06/21/2023 Sex and Gender Information Value Date Recorded Sex Assigned at Not on file Legal Sex Male 2:34 PM SSIS ETL DEVELOPER Gender Identity Male 12/14/2023 10:37 PM CDT Sexual Orientation Straight 12/14/2023 10 :37 PM CDT documented as of this encounter Plan of Treatment Not on file documented as of this encounter Visit Diagnoses Not on filedocumented in this encounter Care Teams Engine Cowling Installer Relationship Specialty Start Date End Date Chet Rodríguez MD [address] [facility] [address] [address] PCP - General Family Practice 06/19/23 documented as of this encounter
--- OUTSIDE RECORDS SUMMARY | 2024-11-12 12:57 | XMS_ITS | Clinical Summary ---
Author Organization [facility] Address [address] [place] [address] Care Team Providers Care Integrated Campaign Manager Name Role Phone Chet Rodríguez MD Primary Care Provider Allergies No known active allergies Medications atorvastatin [...] day as needed for anxiety 30 tablet 1 4 Active Additional Information Patient not taking.Reported [...] 06/20/2023 Assessment & Plan (06/20/2023 6:07 PM CASE COORDINATOR): Mr. Momin is a very pleasant 68 [...] week Assessment & Plan (07/27/2023 1:18 PM CASE COORDINATOR): - IR performed cervical bone biopsy 06/21. Culture and 16S PCR sent (16S PCR indicate no bacterial DNA detected). Bacterial cx negative, fungal and AFB NGTD - On week 6/ of Unasyn (Ampicillin-sulbactam) 3g IV Q6H for [...] visit Assessment & Plan (07/10/2023 3:20 PM CASE COORDINATOR): - 06/21 cervical bone biopsy. Culture and [...] concerns between now and his next visit Encounters Date Type Department Care Team Description 11/01/2024 Orders Only [facility] Pulmonary [address] [facility] 8th [place] [address] [place] [address] Olayinka Jack RMA Lesion of left lung (Primary Dx) 10/29/2024 9:30 AM CDT Office Visit [facility] [address] [facility] 8th [place] [address] [place] [address] Emmanuel Richmond MD Lesion of left lung (Primary Dx) 10/29/2024 8:16 AM CDT - 10/29/2024 11:59 PM CDT Hospital Encounter [facility]) [address] [place] [address] Emmanuel Richmond MD Lesion of left lung Discharge Disposition: Discharge to home or self care from Last 3 Months Immunizations Immunization Administration Dates Next Due Influenza, Quad, Adjuvantated, Intramuscular Influenza, Quadrivalent, Gregoria l Culture-based MDCK, Preservative Free, Antibiotic Free, Intramuscular 03/08/2021,03/03/2019 Influenza, Quadrivalent, Hig h Dose, Preservative Free, Intrr 03/07/2022 Influenza, Quadrivalent, Spl it, Preservative Free, Intramuscular 02/26/2020 Pneumococcal Conjugate Pcv20 07/13/2022 TD Preservative Free 05/12/1998 Tdap 08/12/2013 Surgical History Surgery Date Site/Laterality Comments COLONOSCOPY BIOPSY DEEP BONE 06/21/2023 N/A Medical History Medical History Date Comments Hypertension Hyperlipemia Family History Medical History Relation Name Comments Thyroid disease Father Stroke Mother Asthma Sister Relation Name Status Comments Father Mother Sister Social History Tobacco Use Types Packs/Day Years [...] on file Legal Sex Male 2:34 PM CASE COORDINATOR Gender Identity Male 12/14/2023 10:37 PM CDT Sexual Orientation Straight 12/14/2023 10 :37 PM CDT Obstetrics History Last Filed Vital Signs Vital Sign Reading [...] 10/29/2024 10:12 AM CDT Plan of Treatment Health Maintenance Due Date Last Done Comments Colon Cancer Screening-Colonoscopy 1955 Depression Screening 1957 Hepatitis C Screening 1957 Prostate Cancer Screening-PSA 1957 Hepatitis B Screening 1975 Zoster Vaccine (1 of 2) 2007 Abdominal Aortic Aneurysm (A AA) Screen 2022 Well Visit 65+ 2022 DTaP/Tdap/Td Vaccine (2 - Td or Tdap) 08/13/2023 08/12/2013, 05/12/1998 Fall Risk Assessment 06/27/2024 06/27/2023 Influenza Vaccine (Season Ended) 2025 03/22/2023, 03/07/2022, 03/08/2021, Additional history exists Pneumococcal vaccine 65+ Completed 07/13/2022 Procedures Procedure Name Priority Date/Time Associated Diagnosis [...] Additional predominantly cystic lesion in the lingula () measures 1.8 x 1.8 cm and has [...] Additional predominantly cystic lesion in the lingula () measures 1.8 x 1.8 cm and has progressively increased compared to 06/18/2023. Progressive increase in size of cystic right upper lobe lesion, now measuring 4.9 x 4.8 cm. (40). No pleural effusion or pneumothorax. Heart size [...] esult from Last 3 Months Insurance MEDICARE [employer] [place]ICARE [employer] [place] Advance Directives For more information, please contact: [phone] Documents on File Type Date Recorded Patient Marketing Information Analyst Expl anation ADVANCE DIRECTIVE 06/29/2023 9:01 PM POWER OF DIRECTOR OF EARLY CHILDHOOD EDUCATION-MEDICAL * Full Code (Latest Code Status on File) Date Activated Date Inactivated Comments 06/16/2023 11:04 PM 06/27/2023 6:25 PM Care Teams Integrated Campaign Manager Relationship Specialty Start Date End Date Chet Rodríguez MD [address] [facility] [address] [address] PCP - General Family Practice 06/19/23
[2024-11-12 16:51] LABS: Vitamin D 25 Hydroxy 76.2 ng/mL
[2024-11-12 17:17] LABS: Alanine Aminotransferase 31 U/L (6-50); Albumin Level 4.8 g/dL (3.5-5.1); Alkaline Phosphatase 80 U/L (38-126); Anion Gap 11 mmol/L (4-12); Aspartate Amino Transferase 51 U/L (17-59); Bilirubin,Total 0.6 mg/dL (0.2-1.3); Blood Urea Nitrogen 17 mg/dL (9-20); Calcium 10.1 mg/dL (8.4-10.2); Carbon Dioxide 27 mmol/L (22-30); Chloride 103 mmol/L (98-107); Cholesterol 180 mg/dL (0-200); Estimated Glomerular Filt Rate > 60; Glucose 101 mg/dL (65-110); HDL Direct 57 mg/dL; Sodium 141 mmol/L (137-145); Total Protein 8.4 g/dL (6.3-8.2); Triglycerides 156 mg/dL (<150)
[2024-11-12 17:20] LABS: Basophils Absolute Auto 0.1 K/mm3 (0.0-0.1); Eosinophils Absolute Auto 0.3 K/mm3 (0-0.3); Eosinophils Percent Auto 4.3 % (0-4.4); Hematocrit 48.4 % (42.0-52.0); Hemoglobin 15.6 g/dL (14.0-18.0); Immature Granulocyte Absolute 0.03 K/mm3 (0.00-0.031); Immature Granulocyte Percent A 0.4 % (0-0.5); Lymphocytes Absolute Auto 1.95 K/mm3 (0.9-3.2); Lymphocytes Percent Auto 24.5 % (18.3-44.2); Mean Corpuscular HGB Conc 32.2 g/dl (32-36); Mean Corpuscular Hemoglobin 30.2 pg (26-34); Mean Corpuscular Volume 93.8 fl (80-100); Mean Platelet Volume 9.3 fl (7.4-10.4); Monocytes Absolute Auto 0.7 K/mm3 (0.1-0.6); Monocytes Percent Auto 8.5 % (2.6-8.5); Neutrophils Absolute Auto 4.9 K/mm3 (1.3-6.7); Neutrophils Percent Auto 61.3 % (45.5-73.1); Platelet Count Result 293 k/mm3 (150-375); Red Blood Count 5.16 M/mm3 (4.6-6.20); Red Cell Distribution Width 14.5 % (11.5-14.5)
[2024-11-12 17:29] LABS: LDL Cholesterol Direct 78 mg/dL
[2024-11-12 17:49] LABS: Prostate Specific Antigen 1.9 ng/mL (< OR = 4.0)
== END 2024-11-12 11:44 | disposition home or self-care (01) ==
LOC: ANHGOSHLAB 11:43
PROVIDERS: PCP Family Medicine; Visit Provider Family Medicine
DX: E78.5 Hyperlipidemia, unspecified (principal); I10 Essential (primary) hypertension; Z00.00 Encounter for general adult medical examination without abnormal findings; R73.03 Prediabetes; E55.9 Vitamin D deficiency, unspecified; E53.8 Deficiency of other specified B group vitamins; Z12.5 Encounter for screening for malignant neoplasm of prostate
CPT/HCPCS: 36415; 80053; 80061; 82306; 82607; 83036; 84153; 84443; 85025; G0103

== ENCOUNTER 2025-05-16 13:16 | Outpatient (CLI) | payer MEDICARE, BC, SELFPAY ==
[2025-05-16 18:11] LABS: Hematocrit 45.1 % (42.0-52.0); Hemoglobin 14.8 g/dL (14.0-18.0); Immature Granulocyte Percent A 0.4 % (0-0.5); Lymphocytes Absolute Auto 1.54 K/mm3 (0.9-3.2); Mean Corpuscular HGB Conc 32.8 g/dl (32-36); Mean Corpuscular Hemoglobin 30.2 pg (26-34); Mean Corpuscular Volume 92.0 fl (80-100); Nucleated Red Blood Cells Absolute Auto 0.000 K/mm3 (0.0-0.012); Nucleated Red Blood Cells Perc 0.0 % (0.0-0.2); Platelet Count Result 279 k/mm3 (150-375); Red Blood Count 4.90 M/mm3 (4.6-6.20); White Blood Count 7.2 K/mm3 (4.5-10.0)
[2025-05-16 19:15] LABS: Hemoglobin A1C 6.0 % (<5.7)
[2025-05-16 19:16] LABS: Alanine Aminotransferase 34 U/L (6-50); Albumin Level 4.5 g/dL (3.5-5.1); Alkaline Phosphatase 82 U/L (38-126); Anion Gap 5 mmol/L (4-12); Aspartate Amino Transferase 31 U/L (17-59); Bilirubin,Total 0.5 mg/dL (0.2-1.3); Blood Urea Nitrogen 16 mg/dL (9-20); Calcium 9.5 mg/dL (8.4-10.2); Carbon Dioxide 27 mmol/L (22-30); Chloride 105 mmol/L (98-107); Cholesterol 180 mg/dL (0-200); Estimated Glomerular Filt Rate > 60; Glucose 109 mg/dL (65-110); HDL Direct 50 mg/dL; Potassium 4.5 mmol/L (3.4-5.0); Sodium 137 mmol/L (137-145); Total Protein 8.2 g/dL (6.3-8.2); Triglycerides 141 mg/dL (<150)
== END 2025-05-16 13:17 | disposition home or self-care (01) ==
LOC: ANHGOSHLAB 13:16
PROVIDERS: PCP Nurse Practitioner Family; Visit Provider Nurse Practitioner Family
DX: E78.5 Hyperlipidemia, unspecified (principal); I10 Essential (primary) hypertension; R73.03 Prediabetes
CPT/HCPCS: 36415; 80053; 80061; 83036; 85025